=== PATIENT | male | born 2000 | race Caucasian/White ===

== ENCOUNTER 2019-08-25 03:24 | Inpatient (IN) | payer OTHER ==
[2019-08-25] MEDS ORDERED: Morphine 2 MG/ML SYRINGE SLOW IVP PRN ×2 (04:56→07:57)
[2019-08-25 05:26] VITALS: BMI 19.3
[2019-08-25] MEDS ORDERED: Ondansetron ODT 4 MG TAB PO PRN (06:08)
[2019-08-25] MEDS ORDERED: Dextrose 50% Abboject 50 ML SYRINGE SLOW IVP PRN (06:08)
[2019-08-25] MEDS ORDERED: Ondansetron PF 4 MG/2 ML Vial IVP PRN (06:08)
[2019-08-25] MEDS ORDERED: Dextrose 5% in Water 1,000 ML IV PRN (06:08)
[2019-08-25] MEDS ORDERED: traMADol HCl 50 MG TAB PO PRN (06:12)
[2019-08-25] MEDS ORDERED: Ibuprofen 600 MG TAB PO PRN (06:12)
[2019-08-25] MEDS ORDERED: Sodium Chloride 0.9% 1,000 ML IV SCH (06:15)
[2019-08-25] MEDS: traMADol HCl 50 MG TAB PO PRN ×2 (07:04→16:48)
[2019-08-25] MEDS: Acetaminophen 500 MG TAB PO SCH ×3 (07:05→18:31)
[2019-08-25 07:06] LABS: Magnesium 1.9 mg/dL (1.6-2.6); Phosphorus 4.6 mg/dL (2.3-4.7)
[2019-08-25] MEDS ORDERED: Potassium Chloride 40 MEQ in Premix Bag 1 BAG IVPB SCH (08:00)
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
[2019-08-25] MEDS: Gabapentin 300 MG CAP PO SCH ×3 (09:03→20:47)
[2019-08-25] MEDS: Senokot S 8.6-50 MG TAB PO SCH ×2 (09:03→22:15)
[2019-08-25] MEDS: Sodium Chloride 0.9% 1,000 ML IV SCH ×2 (09:05→16:50)
[2019-08-25] MEDS: Polyethylene Glycol 3350 17 GM Packet PO SCH (09:05)
[2019-08-25] MEDS: Potassium Chloride 20 MEQ in Premix Bag 1 BAG IVPB SCH ×2 (09:13→12:26)
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
[2019-08-25] MEDS: Morphine 4 MG/ML VIAL IV PRN ×2 (10:53→18:31)
[2019-08-25] MEDS ORDERED: Ketorolac Tromethamine 30 MG/ML VIAL ONE (12:16)
[2019-08-25] MEDS ORDERED: PROPOFOL 200 MG/20 ML VIAL ONE (12:16)
[2019-08-25] MEDS ORDERED: Lidocaine 1% PF 5 ML VIAL ONE (12:16)
[2019-08-25] MEDS ORDERED: Dexamethasone 20 MG/5 ML VIAL ONE (12:16)
[2019-08-25] MEDS ORDERED: PHENYLEPHRINE-NS 100 MCG/ML 10 ML SYRINGE ONE (12:16)
[2019-08-25] MEDS ORDERED: Ondansetron PF 4 MG/2 ML Vial ONE (12:16)
[2019-08-25] MEDS ORDERED: Bupivacaine 0.25% HCL 30 ML VIAL ONE (22:39)
[2019-08-25] MEDS ORDERED: Bacitracin Zinc Ointment 30 gm TUBE ONE (22:39)
[2019-08-25] MEDS ORDERED: Insulin Regular 300 UNITS/3 ML VIAL ONE (22:43)
[2019-08-25] MEDS ORDERED: Fentanyl 100 MCG/2 ML VIAL ONE (22:46)
[2019-08-25] MEDS ORDERED: Midazolam HCl 2 mg/2 ml Vial ONE (23:17)
[2019-08-25] MEDS ORDERED: Ketorolac Tromethamine 30 MG/ML VIAL IVP PRN (23:32)
[2019-08-25] MEDS ORDERED: Promethazine HCl 25 MG/ML VIAL IM PRN (23:32)
[2019-08-25] MEDS ORDERED: Ondansetron HCl/PF 4 MG/2 ML Vial IVP PRN (23:32)
[2019-08-25] MEDS ORDERED: Promethazine HCl 25 MG/ML VIAL SLOW IVP PRN (23:32)
[2019-08-26] MEDS: Acetaminophen 500 MG TAB PO SCH ×2 (00:24→05:34)
[2019-08-26] MEDS ORDERED: Acetaminophen 325 MG TAB PO PRN ×2 (01:25→07:21)
[2019-08-26] MEDS ORDERED: Morphine 4 MG/ML VIAL SLOW IVP PRN (01:25)
[2019-08-26] MEDS ORDERED: traMADol HCl 50 MG TAB PO PRN (01:25)
[2019-08-26] MEDS ORDERED: Ondansetron PF 4 MG/2 ML Vial IV PRN (01:25)
[2019-08-26] MEDS ORDERED: Promethazine HCl 25 MG/ML VIAL IM PRN (01:25)
[2019-08-26] MEDS ORDERED: HYDROcodone/Acetaminophen 5/325 mg Tablet PO PRN ×2 (01:25→07:21)
[2019-08-26] MEDS ORDERED: Fentanyl 100 MCG/2 ML VIAL SLOW IVP PRN (01:25)
[2019-08-26] MEDS ORDERED: Sodium Chloride 0.9% 100 ML IV SCH (01:30)
[2019-08-26] MEDS ORDERED: Pharmacy TO RENALLY ADJUST ABX FS PRN (01:30)
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
[2019-08-26] MEDS ORDERED: Vancomycin HCl 1.25 GM in Sodium Chloride 0.9% 250 ML 250 ML IVPB SCH ×2 (01:45→09:00)
[2019-08-26] MEDS: Sodium Chloride 0.9% 1,000 ML IV SCH (02:28)
[2019-08-26] MEDS: Ketorolac Tromethamine 30 MG/ML VIAL IVP SCH ×4 (05:33→23:19)
[2019-08-26 06:14] LABS: #Lymphocytes 0.6 thou/uL (1.20-3.40); #Monocytes 0.1 thou/uL (0.11-0.59); #Neutrophils 6.4 thou/uL (1.40-6.50); %Basophils 0.2 % (0.0-1.0); %Eosinophils 0.2 % (0.0-10.0); %Lymphocytes 8.2 % (21.0-51.0); %Monocytes 0.6 % (0.0-10.0); %Neutrophils 90.7 % (42.0-75.0); Hemoglobin 12.9 g/dL (14.0-18.0); Mean Corpuscular Hemoglobin 32.7 pg (27.0-31.0); Mean Corpuscular Volume 96.3 fL (78.0-98.0); Mean Platelet Volume 9.3 fL (7.4-10.4); Platelet Count 156 thou/uL (130-400); RBC Distribution Width 10.9 % (11.5-14.5); Red Blood Cell (RBC) Count 3.94 mill/uL (4.70-6.10); White Blood Cell (WBC) Count 7.1 thou/uL (4.8-10.8)
[2019-08-26 06:44] LABS: Anion Gap 12 mmol/L (10-20); BUN (Urea Nitrogen) 14 mg/dL (8.9-20.6); Calc. Creatinine Clearance 92 mL/min (70-130); Calcium 8.3 mg/dL (7.8-10.44); Carbon Dioxide 22 mmol/L (22-29); Chloride 105 mmol/L (98-107); Estimated GFR-MDRD 85; Glucose 183 mg/dL (70-105); Magnesium 1.9 mg/dL (1.6-2.6); Phosphorus 2.5 mg/dL (2.3-4.7); Sodium 135 mmol/L (136-145)
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
[2019-08-26] MEDS ORDERED: Acetaminophen/Codeine 30-300mg Tablet PO PRN (07:57)
[2019-08-26] MEDS ORDERED: Acetaminophen 500 MG TAB PO SCH (07:58)
[2019-08-26] MEDS ORDERED: Ibuprofen 800 MG TAB PO SCH (08:00)
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
[2019-08-26] MEDS ORDERED: PHOS-NAK 1 PKT PACK PO SCH (08:30)
[2019-08-26] MEDS: Polyethylene Glycol 3350 17 GM Packet PO SCH (08:44)
[2019-08-26] MEDS: Gabapentin 300 MG CAP PO SCH ×3 (08:45→20:27)
[2019-08-26] MEDS: Senokot S 8.6-50 MG TAB PO SCH ×2 (08:45→20:27)
[2019-08-26] MEDS: Aspirin 81 mg Enteric Coated Tablet PO SCH ×2 (08:45→20:27)
[2019-08-26] MEDS: Acetaminophen 325 MG TAB PO SCH ×3 (08:45→20:27)
[2019-08-26] MEDS ORDERED: TETANUS AND DIPHTHERIA TOX/PF 0.5 ML DISP.SYRIN IM SCH (09:00)
[2019-08-26] MEDS: Vancomycin 1 GM in Premix Bag 1 BAG IVPB SCH ×2 (11:24→18:27)
[2019-08-26] MEDS: Acetaminophen/Codeine 30-300mg Tablet PO PRN ×2 (13:36→23:19)
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
[2019-08-26] MEDS: Morphine 4 MG/ML VIAL IV PRN ×2 (17:25→21:04)
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
[2019-08-27 03:14] LABS: Vancomycin, Trough 18.4 ug/mL
[2019-08-27] MEDS: Vancomycin 1 GM in Premix Bag 1 BAG IVPB SCH ×4 (03:33→20:19)
[2019-08-27] MEDS: Acetaminophen 325 MG TAB PO SCH ×4 (03:40→20:19)
[2019-08-27] MEDS: Ketorolac Tromethamine 30 MG/ML VIAL IVP SCH (05:12)
[2019-08-27] MEDS: Polyethylene Glycol 3350 17 GM Packet PO SCH (08:38)
[2019-08-27] MEDS: Aspirin 81 mg Enteric Coated Tablet PO SCH ×2 (08:38→20:19)
[2019-08-27] MEDS: Gabapentin 300 MG CAP PO SCH ×3 (08:38→20:19)
[2019-08-27] MEDS: Senokot S 8.6-50 MG TAB PO SCH ×2 (08:38→20:20)
[2019-08-27] MEDS: Morphine 4 MG/ML VIAL IV PRN ×2 (09:26→21:36)
[2019-08-27] MEDS ORDERED: PHENYLEPHRINE-NS 100 MCG/ML 10 ML SYRINGE ONE (11:13)
[2019-08-27] MEDS ORDERED: Ketorolac Tromethamine 30 MG/ML VIAL ONE (11:13)
[2019-08-27] MEDS ORDERED: Metoclopramide HCl 10 MG/2 ML VIAL ONE (11:13)
[2019-08-27] MEDS ORDERED: Lidocaine 1% PF 5 ML VIAL ONE (11:13)
[2019-08-27] MEDS ORDERED: Dexamethasone 20 MG/5 ML VIAL ONE (11:13)
[2019-08-27] MEDS ORDERED: PROPOFOL 200 MG/20 ML VIAL ONE (11:13)
[2019-08-27] MEDS ORDERED: Ondansetron PF 4 MG/2 ML Vial ONE (11:13)
[2019-08-27] MEDS ORDERED: diphenhydrAMINE 25 MG CAP PO SCH (11:45)
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
[2019-08-27] MEDS ORDERED: Bupivacaine 0.25% HCL 30 ML VIAL ONE (13:36)
[2019-08-27] MEDS ORDERED: Sodium Chloride 0.9% 0 ML ONE (13:37)
[2019-08-27] MEDS ORDERED: Bacitracin Zinc Ointment 30 gm TUBE ONE (13:37)
[2019-08-27] MEDS ORDERED: Fentanyl 100 MCG/2 ML VIAL ONE ×2 (13:39→16:54)
[2019-08-27] MEDS ORDERED: Midazolam HCl 2 mg/2 ml Vial ONE (13:39)
[2019-08-27] MEDS ORDERED: Famotidine/PF 20 mg/2ml Vial ONE (13:39)
[2019-08-27] MEDS ORDERED: Ibuprofen 600 MG TAB PO PRN (14:00)
[2019-08-27] MEDS ORDERED: Tobramycin/dex OPTH 2.5 ML BOT ONE (14:40)
[2019-08-27] MEDS ORDERED: Tobramycin/Dexamethasone Ophth Oint 3.5 GM TUBE ONE (14:40)
[2019-08-27] MEDS ORDERED: Tobramycin 80 MG/2 ML VIAL ONE (14:41)
[2019-08-27] MEDS ORDERED: Tobramycin Sulfate 1.2 GM VIAL ONE ×2 (14:42→15:19)
[2019-08-27] MEDS ORDERED: Ondansetron HCl/PF 4 MG/2 ML Vial IVP PRN ×2 (14:43→16:34)
[2019-08-27] MEDS ORDERED: Promethazine HCl 25 MG/ML VIAL SLOW IVP PRN ×2 (14:43→16:34)
[2019-08-27] MEDS ORDERED: Promethazine HCl 25 MG/ML VIAL IM PRN ×2 (14:43→16:34)
[2019-08-27] MEDS ORDERED: HYDROmorphone 2 MG/ML VIAL SLOW IVP PRN (16:34)
[2019-08-27] MEDS ORDERED: Meperidine HCl/PF 25 MG/ML VIAL SLOW IVP PRN ×2 (16:34)
--- NOTE | 2019-08-27 17:48 | RAD ---
FINGERS RIGHT HAND: 08/27/19 Total of five fluoroscopic images presented from the OR. INDICATION: Intraoperative imaging during intraoperative fixation. FINDINGS/IMPRESSION: These films demonstrate pins in the fourth metacarpal and fourth proximal phalanx. POS: AGW
[2019-08-27] MEDS: Acetaminophen/Codeine 30-300mg Tablet PO PRN (19:16)
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
[2019-08-28] MEDS: Acetaminophen/Codeine 30-300mg Tablet PO PRN ×2 (02:13→08:43)
[2019-08-28] MEDS: Cyclobenzaprine 10 MG TAB PO PRN ×2 (02:14→08:43)
[2019-08-28] MEDS: Acetaminophen 325 MG TAB PO SCH ×2 (02:14→08:42)
[2019-08-28 03:30] LABS: #Lymphocytes 0.6 thou/uL (1.20-3.40); #Monocytes 0.3 thou/uL (0.11-0.59); #Neutrophils 9.8 thou/uL (1.40-6.50); %Basophils 0.1 % (0.0-1.0); %Eosinophils 0.1 % (0.0-10.0); %Lymphocytes 5.3 % (21.0-51.0); %Monocytes 2.4 % (0.0-10.0); %Neutrophils 92.1 % (42.0-75.0); Hemoglobin 13.1 g/dL (14.0-18.0); Mean Corpuscular HGB CONC 34.1 g/dL (32.0-36.0); Mean Corpuscular Volume 96.6 fL (78.0-98.0); Mean Platelet Volume 9.5 fL (7.4-10.4); Platelet Count 194 thou/uL (130-400); RBC Distribution Width 11.2 % (11.5-14.5); Red Blood Cell (RBC) Count 3.96 mill/uL (4.70-6.10); White Blood Cell (WBC) Count 10.7 thou/uL (4.8-10.8)
[2019-08-28 03:45] LABS: Vancomycin, Trough 20.6 ug/mL
[2019-08-28] MEDS: Vancomycin 1 GM in Premix Bag 1 BAG IVPB SCH (05:03)
[2019-08-28] MEDS ORDERED: Vancomycin HCl 750 MG in Sodium Chloride 0.9% 250 ML 250 ML IVPB SCH (06:00)
[2019-08-28] MEDS: Aspirin 81 mg Enteric Coated Tablet PO SCH (08:43)
[2019-08-28] MEDS: Gabapentin 300 MG CAP PO SCH (08:43)
[2019-08-28] MEDS: Senokot S 8.6-50 MG TAB PO SCH (08:45)
[2019-08-28] MEDS: Polyethylene Glycol 3350 17 GM Packet PO SCH (08:45)
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
[2019-08-28] MEDS: Morphine 4 MG/ML VIAL IV PRN (10:43)
[2019-08-28 11:53] VITALS: BP 111/57; TEMP 97.6
== END 2019-08-28 14:07 | disposition home or self-care (01) | DRG 514 ==
LOC: ERS 03:24 → SURG A 03:57 → OBSVTOIN 03:57
PROVIDERS: ADMIT Surgery; ATTEND Surgery
PROC: 01Q60ZZ Repair Radial Nerve, Open Approach (ICD-10-PCS; principal; 2019-08-25)
PROC: 0PHV34Z Insertion of Internal Fixation Device into Left Finger Phalanx, Percutaneous Approach (ICD-10-PCS; 2019-08-25)
PROC: 0PBV0ZZ Excision of Left Finger Phalanx, Open Approach (ICD-10-PCS; 2019-08-25)
PROC: 0PSV04Z Reposition Left Finger Phalanx with Internal Fixation Device, Open Approach (ICD-10-PCS; 2019-08-27)
DX: S62.615B Displaced fracture of proximal phalanx of left ring finger, initial encounter for open fracture (principal); S64.22XA Injury of radial nerve at wrist and hand level of left arm, initial encounter; W34.00XA Accidental discharge from unspecified firearms or gun, initial encounter
CPT/HCPCS: 36415; 76000; 80048; 80202; 83735; 84100; 85025; 85652; 99285; C1713; J1100; J1815; J1885; J2001; J2250; J2270; J2405; J2704; J2765; J3010; J3260; J3370; J3480; J7050; Q0163; S0020; S0028

== ENCOUNTER 2019-09-20 11:10 | Outpatient (CLI) | payer OTHER ==
[2019-09-20 13:00] LABS: Hemoglobin 15.5 g/dL (14.0-18.0); Mean Corpuscular HGB CONC 35.2 g/dL (32.0-36.0); Mean Corpuscular Hemoglobin 33.2 pg (27.0-31.0); Mean Corpuscular Volume 94.3 fL (78.0-98.0); Mean Platelet Volume 8.2 fL (7.4-10.4); Platelet Count 276 thou/uL (130-400); Red Blood Cell (RBC) Count 4.66 mill/uL (4.70-6.10); White Blood Cell (WBC) Count 5.8 thou/uL (4.8-10.8)
[2019-09-20 18:12] LABS: SARS-CoV-2 MS2 Positive; SARS-CoV-2 N Gene Negative; SARS-CoV-2 S Gene Negative; SARS-CoV-2 orf1ab Negative
== END 2019-09-20 11:11 | disposition home or self-care (01) ==
LOC: LABBT 11:10
PROVIDERS: ATTEND Orthopaedic Surgery Hand Surgery
DX: Z01.812 Encounter for preprocedural laboratory examination (principal); Z11.59 Encounter for screening for other viral diseases; S62.605B Fracture of unspecified phalanx of left ring finger, initial encounter for open fracture
CPT/HCPCS: 85027; 87635; U0003

== ENCOUNTER 2019-09-24 09:44 | Day surgery (SDC) | payer OTHER ==
[2019-09-20 12:04] VITALS: BMI 20.2
[~2019-09-24 09:44] MED LIST: Dexamethasone 20 MG/5 ML VIAL ONE; Glycopyrrolate 0.2 MG/ML 5 ML SYRINGE ONE; Lidocaine 1% PF 5 ML VIAL ONE; PHENYLEPHRINE-NS 100 MCG/ML 10 ML SYRINGE ONE; PROPOFOL 200 MG/20 ML VIAL ONE; Rocuronium Bromide 10 MG/ML (10ML VIAL) ONE; diphenhydrAMINE 50 MG/ML VIAL ONE
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
[2019-09-24] MEDS ORDERED: Fentanyl 100 MCG/2 ML VIAL ONE ×4 (16:22→23:10)
[2019-09-24] MEDS ORDERED: Bupivacaine PF 0.5% 30 ML VIAL ONE (16:50)
[2019-09-24] MEDS ORDERED: Bacitracin Zinc Ointment 30 gm TUBE ONE (16:50)
[2019-09-24] MEDS ORDERED: Sodium Chloride 0.9% 10 ML ONE (16:53)
[2019-09-24] MEDS ORDERED: Promethazine HCl 25 MG/ML VIAL SLOW IVP PRN (22:03)
[2019-09-24] MEDS ORDERED: Ondansetron HCl/PF 4 MG/2 ML Vial IVP PRN (22:03)
[2019-09-24] MEDS ORDERED: HYDROmorphone 2 MG/ML VIAL SLOW IVP PRN (22:03)
[2019-09-24] MEDS ORDERED: Ketorolac Tromethamine 30 MG/ML VIAL ONE (22:08)
[2019-09-24] MEDS ORDERED: HYDROcodone/Acetaminophen 5/325 mg Tablet ONE (22:49)
[2019-09-24] MEDS ORDERED: Ondansetron PF 4 MG/2 ML Vial ONE (22:59)
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
== END 2019-09-24 23:51 | disposition home or self-care (01) ==
LOC: SDC 09:44
PROVIDERS: ATTEND Orthopaedic Surgery Hand Surgery
PROC: 01U60JZ Supplement Radial Nerve with Synthetic Substitute, Open Approach (ICD-10-PCS; principal; 2019-09-24)
PROC: 0PSV04Z Reposition Left Finger Phalanx with Internal Fixation Device, Open Approach (ICD-10-PCS; principal; 2019-09-24)
PROC: 0PB10ZZ Excision of 1 to 2 Ribs, Open Approach (ICD-10-PCS; principal; 2019-09-24)
PROC: 0PR Upper Bones, Replacement (ICD-10-PCS; principal; 2019-09-24)
DX: S62.615B Displaced fracture of proximal phalanx of left ring finger, initial encounter for open fracture (principal); S64.495A Injury of digital nerve of left ring finger, initial encounter; F17.220 Nicotine dependence, chewing tobacco, uncomplicated; F17.290 Nicotine dependence, other tobacco product, uncomplicated; F41.9 Anxiety disorder, unspecified; Z98.890 Other specified postprocedural states; W34.00XA Accidental discharge from unspecified firearms or gun, initial encounter
CPT/HCPCS: 76000; J0690; J1100; J1200; J1885; J2001; J2405; J2704; J3010; J3490; S0020